=== PATIENT | female | born 1995 | race Caucasian/White ===

== ENCOUNTER 2022-04-05 20:01 | Inpatient (IN) | payer BC, SELFPAY ==
[~2022-04-05] VITALS: Ht 165.1 cm; Wt 90.9 kg
[2022-04-05 21:12] LABS: HEMATOCRIT 44.6 % (36.0-47.0); HEMOGLOBIN 14.8 g/dl (12.0-15.5); MEAN CORPUSCULAR HEMOGLOBIN 29.5 pg (27.0-33.0); MEAN CORPUSCULAR HGB CONC 33.2 g/dl (32.0-36.5); PLATELET COUNT, AUTOMATED 350 10^3/uL (150-450); RED BLOOD COUNT 5.01 10^6/uL (4.00-5.40); WHITE BLOOD COUNT 12.7 10^3/uL (4.0-10.0)
[2022-04-05 21:40] LABS: RSV AMPLIFICATION NEGATIVE (NEGATIVE)
[2022-04-05 21:42] LABS: HCG, SERUM QUALITATIVE NEGATIVE (NEGATIVE)
[2022-04-05 21:45] LABS: AMPHETAMINES LEVEL URINE NEGATIVE (NEGATIVE); BARBITURATES URINE NEGATIVE (NEGATIVE); BENZODIAZEPINES URINE NEGATIVE (NEGATIVE); CANNABINOIDS URINE NEGATIVE (NEGATIVE); COCAINE METABOLITE URINE NEGATIVE (NEGATIVE); METHADONE URINE NEGATIVE (NEGATIVE); OPIATES URINE POSITIVE (NEGATIVE); PHENCYCLIDINE URINE NEGATIVE (NEGATIVE)
[2022-04-05 21:46] LABS: ACETAMINOPHEN LEVEL < 2.0 UG/ML (10.0-30.0); ALBUMIN 4.4 GM/DL (3.2-5.2); ALT/SGPT 65 U/L (12-78); BILIRUBIN,DIRECT 0.2 MG/DL (0.0-0.2); BILIRUBIN,TOTAL 0.4 MG/DL (0.2-1.0); BLOOD UREA NITROGEN 12 MG/DL (7-18); CALCIUM LEVEL 9.7 MG/DL (8.5-10.1); CARBON DIOXIDE LEVEL 30 MEQ/L (21-32); CHLORIDE LEVEL 104 MEQ/L (98-107); CREATININE FOR GFR 0.84 MG/DL (0.55-1.30); ETHYL ALCOHOL (ETHANOL) 0.003 % (0.000-0.010); GLOMERULAR FILTRATION RATE > 60.0 (>60); GLUCOSE, FASTING 94 MG/DL (70-100); POTASSIUM SERUM 3.8 MEQ/L (3.5-5.1); SALICYLATE LEVEL < 1.7 MG/DL (5.0-30.0); SODIUM LEVEL 139 MEQ/L (136-145); THYROID STIMULATING HORMONE 0.858 uIU/ML (0.358-3.740); TOTAL PROTEIN 7.8 GM/DL (6.4-8.2)
[2022-04-06] MEDS ORDERED: HOME MED LIST COMPLETE! XX SCH (04:30)
[2022-04-07 10:59] LABS: RSV AMPLIFICATION NEGATIVE (NEGATIVE)
[2022-04-07] MEDS ORDERED: traZODone 50 MG TAB PO PRN (12:25)
[2022-04-07] MEDS ORDERED: MOM 30ML SUSPENSION UDC PO PRN (12:25)
[2022-04-07] MEDS ORDERED: diphenhydrAMINE 25MG CAP PO PRN (12:25)
[2022-04-07] MEDS ORDERED: MAALOX 30 ML SUSP *UDC PO PRN (12:25)
[2022-04-07] MEDS ORDERED: IBUPROFEN 400MG TAB PO PRN (12:25)
[2022-04-07] MEDS: NICOTINE 21MG/24HR 1 EA TRANSDERMAL TD SCH (12:47)
[2022-04-07 15:09] VITALS: BP 147/87
[2022-04-08 06:29] VITALS: BP 109/58
[2022-04-08] MEDS: NICOTINE 21MG/24HR 1 EA TRANSDERMAL TD SCH (09:22)
[2022-04-08] MEDS: SERTRALINE HCL 25 MG TABLET PO SCH (10:28)
[2022-04-08 19:07] VITALS: BP 133/81
[2022-04-08] MEDS: PRAZOSIN 1 MG CAP PO SCH (20:33)
[2022-04-08] MEDS: hydrOXYzine 50 MG TAB PO PRN (20:33)
[2022-04-09 06:25] VITALS: BP 120/59
[2022-04-09] MEDS: SERTRALINE HCL 25 MG TABLET PO SCH (08:17)
[2022-04-09] MEDS: NICOTINE 21MG/24HR 1 EA TRANSDERMAL TD SCH (08:17)
[2022-04-09] MEDS: PRAZOSIN 1 MG CAP PO SCH (20:13)
[2022-04-09] MEDS: hydrOXYzine 50 MG TAB PO PRN (20:13)
[2022-04-10 06:17] VITALS: BP 109/65
[2022-04-10] MEDS: NICOTINE 21MG/24HR 1 EA TRANSDERMAL TD SCH (08:28)
[2022-04-10] MEDS: SERTRALINE HCL 25 MG TABLET PO SCH (08:28)
[2022-04-10 19:50] VITALS: BP 140/80
[2022-04-10 20:00] VITALS: BP 140/80
[2022-04-10] MEDS: hydrOXYzine 50 MG TAB PO PRN (20:00)
[2022-04-10] MEDS: PRAZOSIN 1 MG CAP PO SCH (20:00)
[2022-04-11 06:10] VITALS: BP 137/64
[2022-04-11] MEDS: SERTRALINE HCL 25 MG TABLET PO SCH (08:04)
[2022-04-11] MEDS: NICOTINE 21MG/24HR 1 EA TRANSDERMAL TD SCH (08:05)
[2022-04-11] MEDS ORDERED: MINI1CAP PO (09:23)
[2022-04-11] MEDS ORDERED: HYDR50TA70 PO (09:23)
[2022-04-11] MEDS ORDERED: NICO21PAT TD (09:23)
[2022-04-11] MEDS ORDERED: SERT25TA21 PO (09:23)
[2022-04-11] MEDS: hydrOXYzine 50 MG TAB PO PRN (11:15)
== END 2022-04-11 13:42 | disposition home or self-care (01) | DRG 756 ==
LOC: EEVIPCON 20:01 → M ED 20:01 → M ED INP 04-07 12:21 → M PSY 04-07 13:19
PROVIDERS: ADMIT Student in an Organized Health Care Education/Training Program; ATTEND Psychiatry & Neurology Psychiatry
DX: F41.1 Generalized anxiety disorder (principal); F43.0 Acute stress reaction; Z88.0 Allergy status to penicillin; Z88.2 Allergy status to sulfonamides

== ENCOUNTER 2023-11-23 19:19 | Emergency (ER) | payer SELFPAY ==
[~2023-11-23] VITALS: Ht 165.1 cm; Wt 106.0 kg
[~2023-11-23 19:19] MED LIST: HYDR50TA70 PO; MINI1CAP PO; NICO21PAT TD; SERT25TA21 PO
[2023-11-23 19:20] VITALS: BP 139/89; TEMP 97.3; O2SAT 100
[2023-11-23 19:46] LABS: BASO % 0.4 % (0.0-1.0); EOS # 0.1 10^3/uL (0.0-0.5); EOS % 0.8 % (0.0-3.0); HEMOGLOBIN 13.9 g/dl (12.0-15.5); LYMPH # 1.7 10^3/uL (1.5-5.0); LYMPH % 16.4 % (24.0-44.0); MEAN CORPUSCULAR HEMOGLOBIN 28.7 pg (27.0-33.0); MEAN CORPUSCULAR HGB CONC 33.1 g/dl (32.0-36.5); MEAN CORPUSCULAR VOLUME 86.8 fl (80.0-96.0); NEUTROPHILS # 7.5 10^3/uL (1.5-8.5); PLATELET COUNT, AUTOMATED 237 10^3/uL (150-450); RED BLOOD COUNT 4.84 10^6/uL (4.00-5.40); WHITE BLOOD COUNT 10.4 10^3/uL (4.0-10.0)
[2023-11-23 20:08] LABS: LIPASE 67 U/L (12-53)
[2023-11-23 20:10] LABS: ALBUMIN 3.2 G/DL (3.2-5.2); ALKALINE PHOSPHATASE 72 U/L (46-116); ALT/SGPT 18 U/L (7.0-40); AST/SGOT 19 U/L (<34); BILIRUBIN,DIRECT < 0.1 MG/DL (<0.4); BILIRUBIN,TOTAL 0.3 MG/DL (0.3-1.2); BLOOD UREA NITROGEN 8 MG/DL (9-23); CALCIUM LEVEL 9.2 MG/DL (8.5-10.1); CARBON DIOXIDE LEVEL 26 MMOL/L (20-31); CHLORIDE LEVEL 105 MMOL/L (98-107); CREATININE FOR GFR 0.47 MG/DL (0.55-1.30); GLOMERULAR FILTRATION RATE > 60.0 (>60); GLUCOSE, FASTING 117 MG/DL (60-100); POTASSIUM SERUM 3.6 MMOL/L (3.5-5.1); SODIUM LEVEL 139 MMOL/L (136-145); TOTAL PROTEIN 6.3 G/DL (5.7-8.2)
[2023-11-23] MEDS ORDERED: ACET325C5 PO (20:49)
[2023-11-23] MEDS ORDERED: PRENTAB9 PO (20:49)
== END 2023-11-23 20:03 | disposition admitted as inpatient to this hospital (09) ==
LOC: M ED 19:19
DX: Z53.21 Procedure and treatment not carried out due to patient leaving prior to being seen by health care provider (principal)

== ENCOUNTER 2023-11-23 20:05 | Outpatient (CLI) | payer OTHER ==
[~2023-11-23] VITALS: Ht 162.6 cm; Wt 105.9 kg
[2023-11-23 20:23] VITALS: BP 114/80
[2023-11-23] MEDS ORDERED: ACET325C5 PO (20:49)
[2023-11-23] MEDS ORDERED: PRENTAB9 PO (20:49)
[2023-11-23] MEDS ORDERED: HOME MED LIST COMPLETE! XX SCH (20:50)
[2023-11-23 21:20] LABS: TOTAL PROTEIN,RANDOM URINE 20.3 MG/DL (0.0-14.0)
== END 2023-11-23 21:42 | disposition home or self-care (01) ==
LOC: M LDO 20:05
PROVIDERS: ATTEND Specialist
DX: O26.892 Other specified pregnancy related conditions, second trimester (principal); O99.892 Other specified diseases and conditions complicating childbirth; R51.9 Headache, unspecified; H53.8 Other visual disturbances; Z3A.26 26 weeks gestation of pregnancy
CPT/HCPCS: 59025; 80053; 82248; 82570; 83690; 84156; 84702; 85025; G0463